=== PATIENT | male | born 1935 | race Caucasian/White ===

== ENCOUNTER → 2022-04-29 | Outpatient (CLI) | payer MEDICARE ==
[~2022-04-29] VITALS: Ht 177.8 cm; Wt 77.6 kg
[~2022-04-29] MED LIST: ALFUZOSIN HCL E10 MG PO; ARICEPT10 MG PO; COUMADIN5 MG PO; DITROPAN XL5 MG PO; FLOMAX 0.4 MG0.4 MG PO; FLOMAX0.4 MG PO; LASIX20 MG PO; MELATONIN10 M3 PO; MYCOSTATIN POWD15 GM TOP; MYRBETRIQ50 MG PO; PRINIVIL10 MG PO; TRAZODONE HCL50 MG PO; TROSPIUM CHLORI20 MG PO; VANCOMYCIN HCL125 MG PO; VIBRAMYCIN100 MG PO; VITAMIN B12-FO1 EACH PO; VITAMIN D-32000 UNIT PO
[2022-04-29 11:46] LABS: HEMOGLOBIN 7.8 gm/dl (14.0-17.5)
== END ==
LOC: OPSV 10:00
PROVIDERS: Internal Medicine Hematology & Oncology
DX: D50.9 Iron deficiency anemia, unspecified (principal)
CPT/HCPCS: 36430; 85014; 85018; 86850; 86900; 86901; 86920; P9016

== ENCOUNTER 2022-05-10 23:09 | Emergency (ER) | payer MEDICARE ==
[2022-05-11 01:04] LABS: HEMOGLOBIN 9.9 gm/dl (14.0-17.5); RED BLOOD COUNT 2.89 M/UL (4.20-5.50); WHITE BLOOD COUNT 2.3 K/UL (4.5-11.0)
[2022-05-11 01:29] LABS: BUN/CREATININE RATIO 16 (0-10)
[2022-05-11] MEDS ORDERED: DOXYCYCLINE HY100 MG PO (02:16)
== END 2022-05-11 02:32 | disposition home or self-care (01) ==
LOC: ER1 23:09
PROVIDERS: Emergency Medicine
DX: J32.9 Chronic sinusitis, unspecified (principal); D64.9 Anemia, unspecified; Z96.643 Presence of artificial hip joint, bilateral; Z51.81 Encounter for therapeutic drug level monitoring
CPT/HCPCS: 70450; 80053; 85025; 85610; 85730; 86140; 96374; 96375; 99284; J0780; J1885

== ENCOUNTER → 2022-06-04 | Outpatient (CLI) | payer MEDICARE ==
[~2022-06-04] MED LIST changes: +CLEOCIN HCL300 MG PO; +DONEPEZIL HCL10 MG PO; +DOXYCYCLINE HY100 MG PO; +ELIQUIS 5 MG TAB5 MG PO; +EYE VITAMINS PO; +FINASTERIDE5 MG PO; +FLONASE ALLER15.8 ML; +GABAPENTIN100 MG PO; +HYDROCODON-ACE1 EAC4 PO; +IRON18 MG PO; +LEVOFLOXACIN500 MG PO; +MIDODRINE HCL5 MG PO; +VITAMIN D3125 MCG PO
[2022-06-04 15:26] LABS: RED BLOOD COUNT 2.35 M/UL (4.20-5.50); WHITE BLOOD COUNT 2.2 K/UL (4.5-11.0)
[2022-06-04 15:38] LABS: BUN/CREATININE RATIO 19 (0-10)
== END ==
LOC: LAB 14:50
PROVIDERS: Internal Medicine Cardiovascular Disease
DX: Z45.010 Encounter for checking and testing of cardiac pacemaker pulse generator [battery] (principal); I48.91 Unspecified atrial fibrillation; I49.5 Sick sinus syndrome
CPT/HCPCS: 36415; 71046; 80048; 85025

== ENCOUNTER → 2022-06-06 | Outpatient (CLI) | payer MEDICARE | LOC: HEART 5 06-02 11:30 → CATH 07:09 → ECHO 07:45 | DX: Z45.010 Encounter for checking and testing of cardiac pacemaker pulse generator [battery] (principal); I11.0 Hypertensive heart disease with heart failure; I50.9 Heart failure, unspecified; E11.9 Type 2 diabetes mellitus without complications; G30.9 Alzheimer's disease, unspecified; F02.80 Dementia in other diseases classified elsewhere, unspecified severity, without behavioral disturbance, psychotic disturbance, mood disturbance, and anxiety; I44.2 Atrioventricular block, complete; I48.92 Unspecified atrial flutter; I48.19 Other persistent atrial fibrillation; I42.9 Cardiomyopathy, unspecified; M19.90 Unspecified osteoarthritis, unspecified site; G47.30 Sleep apnea, unspecified; Z87.891 Personal history of nicotine dependence; Z79.84 Long term (current) use of oral hypoglycemic drugs; Z79.2 Long term (current) use of antibiotics; Z79.83 Long term (current) use of bisphosphonates; Z79.899 Other long term (current) drug therapy; Z96.649 Presence of unspecified artificial hip joint; Z96.659 Presence of unspecified artificial knee joint; Z83.3 Family history of diabetes mellitus; Z81.1 Family history of alcohol abuse and dependence; Z82.61 Family history of arthritis; Z82.3 Family history of stroke; Z81.8 Family history of other mental and behavioral disorders | CPT/HCPCS: ECHO; 33213; 93306; 99152; 99153; C2621; J2250; J3010; J3370; J7040; J7050 ==